=== PATIENT | female | born 1995 | race Caucasian/White ===

== ENCOUNTER 2020-10-14 08:10 | Emergency (ER) | payer BC, OTHER ==
[2020-10-14] MEDS ORDERED: LIDOCAINE/EPINEPHR/TETRACAINE 5 ML BOTTLE TOPICAL ONE (08:16)
[2020-10-14] MEDS ORDERED: LIDOCAINE 1% INJ 10MG/ML (20 ML MDV) SQ ONE (08:16)
--- NOTE | 2020-10-14 08:20 | ED ---
Wound/Laceration HPI - General Stated Complaint: Abscess R leg Time Seen by Provider: 10/14/20 08:10 Source: patient, EMS, RN notes reviewed Mode of arrival: EMS - History of Present Illness Initial Comments: This is a 22-year-old female who states she does feel several days ago when she started developing redness to the left proximal anterior lateral leg he seems to develop into an abscess at this point she does states she's had some fevers and chills. No spread of the area she's not sure how he got there. She isn't sure she had an insect bite or abrasion or what was the initial cause. No other complaints or modifying factors he does complain of localized pain. - Related Data Home Medications Medication Instructions Recorded Confirmed Gabapentin [Neurontin] 300 mg PO BID 10/01/14 10/01/14 cloNIDine HCL [Catapres] 0.2 mg PO HS 10/01/14 10/01/14 Previous Rx's Medication Instructions Recorded Sulfamethox-Tmp 800-160Mg [Bactrim 2 each PO Q12HR #40 tab 10/14/20 DS 800-160 mg] Allergies Allergy/AdvReac Type Severity Reaction Status Date / Time No Known Allergies Allergy Verified 10/14/20 08:22 Review of Systems ROS Statement: Those systems with pertinent positive or pertinent negative responses have been documented in the HPI. ROS Other: All systems not noted in ROS Statement are negative. Past Medical History Additional Past Medical History / Comment(s): scoliosis, cyst on left lung. History of Any Multi-Drug Resistant Organisms: None Reported Past Surgical History: Back Surgery Additional Past Surgical History / Comment(s): cyst removed from left lung Past Psychological History: Anxiety, Bipolar, Depression Past Alcohol Use History: None Reported Past Drug Use History: None Reported General Exam - General Exam Comments Initial Comments: Is a well-developed well-nourished awake alert oriented 3 female General appearance: alert, anxious Head exam: Present: atraumatic Eye exam: Present: normal appearance Neck exam: Present: full ROM Extremities exam: Present: full ROM, tenderness, normal capillary refill, other (3 proximal aspect of the lateral leg approximately 5 cm area of erythema with fluctuance centrally consistent with abscess. Localized increased temperature tenderness palpation no evidence of lymphangitis. No tender lymphadenopathy proximal.) Back exam: Present: full ROM Neurological exam: Present: alert, oriented X3, CN II-XII intact Psychiatric exam: Present: normal affect, normal mood Skin exam: Present: warm, dry, intact, other (As noted above). Absent: normal color Course Vital Signs 10/14/20 08:12 Temperature 98.6 F Pulse Rate 75 Respiratory 20 Rate Blood Pressure 126/81 O2 Sat by Pulse 98 Oximetry Procedures - Incision & Drainage Consent Obtained: verbal consent Site: lower extremity Size (cm): 5 Anesthetic Used: lidocaine 1% Amount (mLs): 3 I&D Cleaning Method: Betadine Sterile Field Used?: Yes Scalpel Used: #15 Needle Aspiration Performed?: No I&D Drainage Obtained: Pus, Blood Culture Obtained?: Yes Patient Tolerated Procedure: well (Approximate 3 mL of pus expressed with adequate drainage. No packing indicated) Medical Decision Making - Medical Decision Making The patient did have a I&D of the abscess of the right leg performed. She did tolerate this well she'll be discharged with oral antibiotics and instructions for wound care. We did discuss wound care Disposition Clinical Impression: Abscess of right leg excluding foot Disposition: HOME SELF-CARE Condition: Good Instructions (If sedation given, give patient instructions): Abscess Incision and Drainage (ED) Additional Instructions: Tylenol or Motrin for pain. Clean dressings to be changed daily. Warm moist compresses Prescriptions: Sulfamethox-Tmp 800-160Mg [Bactrim DS 800-160 mg] 2 each PO Q12HR #40 tab Is patient prescribed a controlled substance at d/c from ED?: No Referrals: None,Stated [Primary Care Provider] - 1-2 days
[2020-10-14 08:22] VITALS: BP 126/81; PULSE 75; RESP 20; TEMP 98.6
[2020-10-14] MEDS ORDERED: ACETAMINOPHEN TAB 325 MG TAB PO STA (08:48)
== END 2020-10-14 09:44 | disposition home or self-care (01) ==
LOC: EC 08:10
DX: L02.415 Cutaneous abscess of right lower limb (principal)
CPT/HCPCS: 87070; 87205; 10060; 99283; J2001